=== PATIENT | female | born 1985 | race Asian ===

== ENCOUNTER 2017-06-28 20:04 | Emergency (ER) | payer OTHER ==
[2017-06-28] MEDS ORDERED: Lidocaine 1% PF 5 ML VIAL ONE (22:16)
== END 2017-06-28 22:52 | disposition home or self-care (01) ==
LOC: ERS 20:04
DX: S16.1XXA Strain of muscle, fascia and tendon at neck level, initial encounter (principal); E66.9 Obesity, unspecified; F17.210 Nicotine dependence, cigarettes, uncomplicated; X58.XXXA Exposure to other specified factors, initial encounter
CPT/HCPCS: 20552; J2001

== ENCOUNTER 2019-02-19 19:34 | Emergency (ER) | payer OTHER, MEDICAID | END 2019-02-19 21:02 | disposition home or self-care (01) | LOC: ERS 19:34 | DX: O99.89 Other specified diseases and conditions complicating pregnancy, childbirth and the puerperium (principal); H93.12 Tinnitus, left ear; H92.02 Otalgia, left ear; O99.332 Smoking (tobacco) complicating pregnancy, second trimester; F17.210 Nicotine dependence, cigarettes, uncomplicated; R73.03 Prediabetes; Z79.899 Other long term (current) drug therapy; Z79.84 Long term (current) use of oral hypoglycemic drugs; Z3A.22 22 weeks gestation of pregnancy ==

== ENCOUNTER 2019-03-25 17:11 | Day surgery (SDC) | payer MEDICAID, OTHER ==
[2019-03-25] MEDS ORDERED: hydrALAZINE 20 MG/ML VIAL SLOW IVP PRN (17:57)
[2019-03-25 17:58] VITALS: BMI 33.8
[2019-03-25 18:11] VITALS: BP 138/83; TEMP 98.5
--- NOTE | 2019-03-25 19:09 | CON ---
DATE OF CONSULTATION: 03/25/2019 TIME OF SERVICE: 1830 hours. PRESENTING COMPLAINT: Decreased movement at 27 weeks gestation with IUGR. HISTORY OF PRESENT ILLNESS: Ms. Wiley is a 34-year-old, G1, P0, sees Deena. The patient has known IUGR. Ultrasound yesterday revealed normal fluid. Normal MCA Doppler. Normal umbilical artery Dopplers with an 8/8 biophysical profile. She presents today complaining of decreased movement this afternoon. Denies rupture of membranes. 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 Blood type O-negative, normal 50 g. MEDICAL HISTORY: Hypothyroidism. SURGICAL HISTORY: Appendectomy. MEDICATIONS: Synthroid. ALLERGIES: DENIES. SOCIAL HISTORY: Denies tobacco, alcohol, or IV drug use. FAMILY HISTORY: Noncontributory. REVIEW OF SYSTEMS: Noncontributory. PHYSICAL EXAMINATION: GENERAL: female resting comfortably. VITAL SIGNS: Temperature 98.5, respirations 18, blood pressure 118/72, and pulse 85. HEENT: Within normal limits auscultation bilaterally. HEART: Regular rhythm. ABDOMEN: Soft and nontender. Fundal height 25 cm. FHTs 140s. PELVIC: Deferred. EXTREMITIES: No clubbing, cyanosis, or edema. Nonstress test was carried out for greater than 30 minutes. movements x5 were noted with a reactive heart rate tracing. No decelerations. Category 1 non-stress test. Baseline 140s to 150s with positive accelerations, no decelerations. IMPRESSION: Intrauterine growth restriction with decreased movement, now resolved. No evidence of distress at 27 weeks gestation. PLAN: Discharge home. Keep scheduled followup with Dr. Shaffer. ER precautions. Job ID: [id number]
--- NOTE | 2019-03-25 20:44 | ER ---
DATE OF SERVICE: 03/25/2019 TIME OF SERVICE: 1830. PRESENTING COMPLAINT: Decreased movement at 27 weeks' gestation. HISTORY OF PRESENT ILLNESS: Ms. Wiley is a 34-year-old primigravida with JYOTI of 06/21, placing her at 27 weeks and [address] Shaffer. She has a history of growth restriction, followed by [facility] for IUGR. MCA Dopplers have been within normal limits. She presents today complaining of decreased movement for this afternoon. She denies rupture of membranes. She denies bleeding. PEARL PELLER history is noted. Last ultrasound was the first percentile with normal FRACISCO, umbilical artery, and MCA Dopplers. She is continuing weekly testing with [facility]. She had an ultrasound performed by them on 03/23, which revealed normal FRACISCO, BPP of 8/8, with normal umbilically artery and middle cerebral artery. She presents today complaining of decreased movement, however, upon presentation had 5 movements in the first 30 minutes. 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 Pap negative. Rubella immune. VDRL nonreactive. Hepatitis B, GC, chlamydia negative. 50 g, normal. MEDICAL HISTORY: Hypothyroidism. SURGICAL HISTORY: Appendectomy. ALLERGIES: NONE. MEDICATIONS: Synthroid 75 mcg per day and metformin 500. FAMILY HISTORY: Noncontributory. REVIEW OF SYSTEMS: Noncontributory. PHYSICAL EXAMINATION: GENERAL: [place] female, in no acute distress. VITAL SIGNS: Temperature 98.5, respirations 18, blood pressure 118/72, pulse 85. HEENT: Within normal limits. LUNGS: Clear to auscultation bilaterally. HEART: Regular rhythm. ABDOMEN: Soft and nontender. Fundal height of 25 cm. FHTs 140s. PELVIC: Deferred. EXTREMITIES: Without clubbing, cyanosis, or edema. Nonstress test was carried out for the history of IUGR and decreased movement. As noted in the HPI, the infant had 5 movements in the first 30 minutes with a category 1 heart rate tracing with no decelerations, positive accelerations, no contractions noted, and baseline of 140s to 150s. IMPRESSION: Intrauterine growth restriction with normal antepartum testing 2 days ago and a reactive nonstress test now with normal movement. PLAN: ER precautions. Discharge home. The patient to keep scheduled followup with Deena. Job ID: [id number]
== END 2019-03-25 18:43 | disposition home health service (06) ==
LOC: L&D/OP 17:11
PROVIDERS: ATTEND Student in an Organized Health Care Education/Training Program
DX: O36.8120 Decreased fetal movements, second trimester, not applicable or unspecified (principal); O36.5920 Maternal care for other known or suspected poor fetal growth, second trimester, not applicable or unspecified; O99.282 Endocrine, nutritional and metabolic diseases complicating pregnancy, second trimester; E03.9 Hypothyroidism, unspecified; Z3A.27 27 weeks gestation of pregnancy; Z79.84 Long term (current) use of oral hypoglycemic drugs; Z79.899 Other long term (current) drug therapy
CPT/HCPCS: 59025; 99282

== ENCOUNTER 2019-05-05 15:37 | Inpatient (IN) | payer OTHER ==
[2019-05-05] MEDS ORDERED: Promethazine HCl 25 MG/ML VIAL IM PRN (16:12)
[2019-05-05] MEDS ORDERED: Ondansetron PF 4 MG/2 ML Vial IVP PRN (16:12)
[2019-05-05] MEDS ORDERED: Acetaminophen 500 MG TAB PO PRN (16:12)
[2019-05-05] MEDS ORDERED: hydrALAZINE 20 MG/ML VIAL SLOW IVP PRN (16:12)
--- NOTE | 2019-05-05 16:24 | PDOC.LDHP ---
Labor and Delivery H&P Chief complaint: other HPI: 34 y/o G1 at 32w1d, patient of Dr. Shaffer, presents with leaking fluid this morning at 3 and 5 am. She described it as a lot, and could "wring her underwear out." Denies VB, ctx, or other concerns. +FM. Had amnisure, VP3, GC /CT done in clinic. Was seen for ultrasound yesterday with normal FRACISCO (11) and repeat FRACISCO today is 4. ROS neg for HEENT, cv, pulm, gi, gu, neuro, psych, skin, musculoskeletal or constitutional symptoms other than mentioned above. OB History Details: First Current complications: IUGR Past Medical History: Hypothyroidism Current medications: pre-minesh vitamins, other (Synthroid, Metformin) Previous surgical history: appendectomy Allergies/Adverse Reactions: Allergies Allergy/AdvReac Type Severity Reaction Status Date / Time No Known Allergies Allergy Verified 05/05/19 16:58 Social history: none - Physical Exam Vital signs reviewed and normal: yes General: NAD, resting Lungs: nonlabored breathing Abdomen: gravid Extremeties: no edema FHT: category 1 (150s, mod variability, + accels, no decels) [place] contractions every: None - OB Labs Blood type: O RH: negative 1 hour GCT: negative - Assessment 34 y/o G1 at 32w1d with presumed PPROM. Patient with negative amnisure in clinic but could be false negative due to scant fluid leaking now. Fetus already being followed for IUGR by MFM. - Plan Plan: admit to L&D, informed consent obtained -: -VP3, GC/CT pending -Will treat as presumed rupture for now and repeat amnisure tomorrow morning. -IV hydration -Celestone for lung maturity -Ampicillin and Azithromycin for latency -Dr. Shaffer to assume care tomorrow.
[2019-05-05 16:58] VITALS: BP 143/83; TEMP 97.9; BMI 35.3
[2019-05-05] MEDS ORDERED: Betamet Acet/Betamet Na Ph 30 MG/5 ML VIAL ONE (17:36)
[2019-05-05] MEDS: Betamet Acet/Betamet Na Ph 30 MG/5 ML VIAL IM SCH (17:45)
[2019-05-05] MEDS: Lactated Ringer's 1,000 ML IV SCH ×2 (17:49→21:14)
[2019-05-05] MEDS ORDERED: Azithromycin 250 MG TAB PO SCH (18:15)
[2019-05-05] MEDS: Ampicillin 2 GM in Sodium Chloride 0.9% 100 ML IVPB SCH (18:18)
[2019-05-05] MEDS: metFORMIN 500 MG TAB PO SCH (21:13)
[2019-05-06] MEDS: Ampicillin 2 GM in Sodium Chloride 0.9% 100 ML IVPB SCH ×4 (00:10→18:13)
[2019-05-06] MEDS: Levothyroxine Sodium 75 MCG TAB PO SCH (06:06)
[2019-05-06] MEDS: Lactated Ringer's 1,000 ML IV SCH ×2 (06:06→18:14)
[2019-05-06 09:11] LABS: Hemoglobin 9.9 g/dL (12.0-16.0); Mean Corpuscular HGB CONC 32.9 g/dL (32.0-36.0); Mean Corpuscular Hemoglobin 26.4 pg (27.0-31.0); Mean Corpuscular Volume 80.3 fL (78.0-98.0); Mean Platelet Volume 9.4 fL (7.4-10.4); Platelet Count 291 thou/uL (130-400); RBC Distribution Width 14.6 % (11.5-14.5); Red Blood Cell (RBC) Count 3.75 mill/uL (4.20-5.40); White Blood Cell (WBC) Count 19.5 thou/uL (4.8-10.8)
[2019-05-06 09:16] LABS: ALT (SGPT) 10 U/L (8-55); AST (SGOT) 15 U/L (5-34); Albumin 3.1 g/dL (3.5-5.0); Alkaline Phosphatase 138 U/L (40-110); Anion Gap 14 mmol/L (10-20); BUN (Urea Nitrogen) 8 mg/dL (7.0-18.7); Bilirubin, Total 0.2 mg/dL (0.2-1.2); Calc. Creatinine Clearance 192 mL/min (70-130); Calcium 9.6 mg/dL (7.8-10.44); Carbon Dioxide 19 mmol/L (22-29); Chloride 110 mmol/L (98-107); Estimated GFR-MDRD Greater than 90; Globulin 3.6 g/dL (2.4-3.5); Glucose 98 mg/dL (70-105); Potassium 4.1 mmol/L (3.5-5.1); Protein, Total 6.7 g/dL (6.0-8.3); Sodium 139 mmol/L (136-145)
[2019-05-06 09:51] LABS: Band 6 % (5-11); Eosinophils 1 % (0-10); Lymphocytes 18 % (21-51); MDiff Complete? YES; Metamyelocyte 1 % (0-0); Monocytes 6 % (0-10); Neutrophil 68 % (42-75); Platelet Morphology Comment Appears Adequate; Polychromasia SLIGHT = 2-3 cells (100X) (0-2/hpf)
--- NOTE | 2019-05-06 10:28 | ULT ---
ULTRASOUND BIOPHYSICAL PROFILE: HISTORY: Premature rupture of membranes. IUGR. Oligohydramnios. FINDINGS: A single live intrauterine gestation is seen with a heart rate of 115 beats per minute. p osition is vertex. Placenta is anteriorly located. FRACISCO measures 8.7 cm. BIOPHYSICAL PROFILE: tone: 0 breathin movement: 2 Amniotic fluid: 2 IMPRESSION: Ultrasound biophysical profile score is 4/8. Report was given to the patient's nurse by the machine operator picker at the completion of the exam. CODE CR POS: JONATHON
[2019-05-06] MEDS ORDERED: Docusate 100 MG CAP PO PRN (10:34)
[2019-05-06 10:36] LABS: Amnisure Test No Membranes Rupture (No Rupture)
[2019-05-06 10:37] LABS: Amnisure Internal Control QC ACCEPTABLE (ACCEPTABLE)
[2019-05-06] MEDS ORDERED: Ferrous Sulfate 325 MG TAB PO SCH (10:45)
--- NOTE | 2019-05-06 10:53 | PDOC.LDPN ---
Labor & Delivery Progress Note - Subjective Subjective: comfortable (had slight LOF last night, none this am. Pt had liquid in underwear 2 nights ago but no gush of fluid. Has same discharge as shes always had) - Objective Vital signs reviewed and normal: yes Abnormal vital signs: mild range bp upon admission to l&d General: NAD Uterine fundus: non tender FHT: category 1 [place] contractions every: none -: 34yo at 32w3d by LMP with IUGR, questionable PPROM and elevated BP 1. questionable PPROM Day 2- SSE inconclusive, amnisure negative yesterday and FRACISCO 4cm. Plan repeat BPP and amnisure this am. On latency abx day 07/09. Check CBC 2. IUGR- EFW 4%ile 1 week ago, nl dopplers, NST reassuring 3. Elevated BP- PIH labs to be sent 4. Prematurity- BMZ 06/03, GBS collected 5. IUP- PNL to be sent off. 6. Cont L&D care.
[2019-05-06] MEDS: Ferrous Sulfate 325 MG TAB PO SCH ×2 (13:20→17:32)
[2019-05-06] MEDS: Betamet Acet/Betamet Na Ph 30 MG/5 ML VIAL IM SCH (17:39)
[2019-05-06] MEDS: metFORMIN 500 MG TAB PO SCH (21:25)
[2019-05-07] MEDS: Ampicillin 2 GM in Sodium Chloride 0.9% 100 ML IVPB SCH ×2 (00:21→06:21)
[2019-05-07] MEDS: Levothyroxine Sodium 75 MCG TAB PO SCH (06:21)
[2019-05-07] MEDS: Lactated Ringer's 1,000 ML IV SCH (07:17)
[2019-05-07] MEDS: Ferrous Sulfate 325 MG TAB PO SCH (08:10)
[2019-05-07] MEDS ORDERED: Prenatal Vitamin 1 TAB PO SCH (09:00)
--- NOTE | 2019-05-07 10:32 | ULT ---
US Biophysical Profile: 05/07/2019 8:31 AM CLINICAL HISTORY: Low Biophysical profile yesterday. COMPARISON: 05/06/2019 FINDINGS: heart rate: 141 bpm. FRACISCO: 6.5 cm Biophysical profile: 8 of 8 IMPRESSION: Normal biophysical profile
--- NOTE | 2019-05-07 12:57 | PDOC.LDPN ---
Labor & Delivery Progress Note - Subjective Subjective: comfortable - Objective Vital signs reviewed and normal: yes General: NAD Uterine fundus: non tender Dilation: cl Effacement: 50% Station: -1 FHT: category 1 [place] contractions every: rare Other exam findings: SSE physiologic white discharge, no pooling valsalva amnisure Plan: other (BPP 4/8 yesterday, NST Cat 1 yesterday and today, repeat BPP 8 today, FRACISCO 6.5, no further LOF, negative SSE. Repeat amnisure if negative will DC home. Has FU sono next Tues with MFM for IUGR)
[2019-05-07 13:14] LABS: Amnisure Test No Membranes Rupture (No Rupture)
[2019-05-07 13:15] LABS: Amnisure Internal Control QC ACCEPTABLE (ACCEPTABLE)
[2019-05-07 13:45] LABS: Hemoglobin 9.1 g/dL (12.0-16.0); Mean Corpuscular HGB CONC 33.1 g/dL (32.0-36.0); Mean Corpuscular Hemoglobin 26.6 pg (27.0-31.0); Mean Corpuscular Volume 80.4 fL (78.0-98.0); Mean Platelet Volume 9.3 fL (7.4-10.4); Platelet Count 293 thou/uL (130-400); RBC Distribution Width 14.8 % (11.5-14.5); Red Blood Cell (RBC) Count 3.42 mill/uL (4.20-5.40)
[2019-05-07 14:04] LABS: Anisocytosis SLIGHT = 6-15 cells (100X) (0-5/hpf); Band 13 % (5-11); Hypochromia SLIGHT = 6-15 cells (100X) (0-5/hpf); Lymphocytes 13 % (21-51); MDiff Complete? YES; Metamyelocyte 2 % (0-0); Monocytes 4 % (0-10); Myelocyte 1 % (0-0); Neutrophil 65 % (42-75); Platelet Morphology Comment Appears Adequate; Polychromasia MODERATE = 3-4 cells (100X) (0-2/hpf); Reactive Lymphocytes 2 % (0-10); Tear Drops SLIGHT = 2-5 cells (100X) (0-1/hpf)
== END 2019-05-07 15:40 | disposition home health service (06) | DRG 833 ==
LOC: L&D/OP 15:37 → L&D 15:58
PROVIDERS: ADMIT Student in an Organized Health Care Education/Training Program; ATTEND Student in an Organized Health Care Education/Training Program
DX: O42.013 Preterm premature rupture of membranes, onset of labor within 24 hours of rupture, third trimester (principal); O36.5930 Maternal care for other known or suspected poor fetal growth, third trimester, not applicable or unspecified; O99.284 Endocrine, nutritional and metabolic diseases complicating childbirth; E03.9 Hypothyroidism, unspecified; Z3A.32 32 weeks gestation of pregnancy
CPT/HCPCS: 36415; 76819; 80053; 84112; 85025; 86850; 86870; 86900; 86901; 87081; 87480; 87491; 87510; 87591; 87660; J0290; J0702; J3490

== ENCOUNTER 2019-05-11 13:06 | Inpatient (IN) | payer OTHER ==
[2019-05-11 13:39] VITALS: BMI 35.1
[2019-05-11] MEDS: Lactated Ringer's 1,000 ML IV SCH ×2 (14:18→21:27)
[2019-05-11] MEDS ORDERED: ePHEDrine/0.9% NaCl/PF SYRINGE 50 mg/10 ml ONE (15:13)
[2019-05-11] MEDS ORDERED: Bupivacaine 0.25% 10 ML VIAL ONE (15:13)
[2019-05-11] MEDS ORDERED: Misoprostol 200 MCG TAB PR PRN (15:57)
[2019-05-11] MEDS ORDERED: Lidocaine 1% (PF) 30 ML VIAL SC PRN (15:57)
[2019-05-11] MEDS ORDERED: Carboprost 250 MCG/ML AMP IM PRN (15:57)
[2019-05-11] MEDS ORDERED: Diphenoxylate HCl/Atropine Tablet PO PRN (15:57)
[2019-05-11] MEDS ORDERED: NS / Oxytocin 40 units/1000ml 1,000 ML IV PRN (15:57)
[2019-05-11] MEDS ORDERED: Acetaminophen 500 MG TAB PO PRN (15:57)
[2019-05-11] MEDS ORDERED: Ibuprofen 800 MG TAB PO PRN (15:57)
[2019-05-11] MEDS ORDERED: hydrALAZINE 20 MG/ML VIAL SLOW IVP PRN (15:57)
[2019-05-11] MEDS ORDERED: Ondansetron PF 4 MG/2 ML Vial IVP PRN (15:57)
[2019-05-11] MEDS ORDERED: Methylergonovine 0.2 MG/ML VIAL IM PRN (15:57)
[2019-05-11] MEDS ORDERED: Promethazine HCl 25 MG/ML VIAL IM PRN (15:57)
[2019-05-11] MEDS ORDERED: HYDROcodone/Acetaminophen 5/325 mg Tablet PO PRN ×2 (15:57)
[2019-05-11] MEDS ORDERED: NS w/ Oxytocin 10 units 500 ML IV SCH (16:00)
--- NOTE | 2019-05-11 16:03 | PDOC.LDHP ---
Labor and Delivery H&P Chief complaint: scheduled induction, other (IUGR, oligohydramnios at [facility] office today) HPI: 34yo at 34w1d by LMP here for IOL based on [facility] recommnedations due to IUGR , no growth in last 2 weeks and oligohydramnios FRACISCO 4cm. No complaints, no LOF. Current gestational age (weeks): 34 Due date: 06/21/19 Dating criteria: last menstrual period Grav: 1 Para: 0 Current complications: IUGR, oligohydramnios Abnormal US findings: Yes (IUGR Oligo) Past Medical History: hypothyroid, PCOS asthma Current medications: pre- vitamins, other (synthroid, metformin) Previous surgical history: none Allergies/Adverse Reactions: Allergies Allergy/AdvReac Type Severity Reaction Status Date / Time No Known Allergies Allergy Verified 05/11/19 13:40 Social history: none - Physical Exam Vital signs reviewed and normal: yes General: NAD Heart: RRR Lungs: CTAB Abdomen: gravid Extremeties: no edema FHT: category 1 [place] contractions every: rare - Vaginal Exam cm dilated: 0 Effacement: 50% Station: -2 - OB Labs Blood type: O RH: negative Antibody Screen: positive HIV: negative RPR: negative HEPSAg: negative 1 hour GCT: negative GBS: negative Urine drug screen: negative Rubella: immune - Assessment L&D Assessment: medically indicated induction - Plan Plan: admit to L&D, cervical ripening, labor augmentation if indicated, informed consent obtained, anesthesia consult for pain management
[2019-05-11] MEDS: Misoprostol 100 MCG TAB VAG SCH ×2 (16:33→20:20)
[2019-05-11 16:38] LABS: Hemoglobin 11.6 g/dL (12.0-16.0); Mean Corpuscular HGB CONC 32.5 g/dL (32.0-36.0); Mean Corpuscular Hemoglobin 26.3 pg (27.0-31.0); Mean Corpuscular Volume 80.9 fL (78.0-98.0); Mean Platelet Volume 9.8 fL (7.4-10.4); Platelet Count 367 thou/uL (130-400); RBC Distribution Width 15.2 % (11.5-14.5); Red Blood Cell (RBC) Count 4.41 mill/uL (4.20-5.40); White Blood Cell (WBC) Count 20.9 thou/uL (4.8-10.8)
[2019-05-11 17:21] LABS: Syphilis Antibody Nonreactive (Nonreactive); Syphilis Antibody Index 0.06 S/CO (<1.00 Non-Reactive)
[2019-05-11 17:23] LABS: HBSAg Index 0.19 S/CO (0-0.99); Hep B Surf Ag Non-Reactive S/CO (NonReactive)
[2019-05-11 17:42] LABS: ALT (SGPT) 12 U/L (8-55); AST (SGOT) 17 U/L (5-34); Albumin 3.6 g/dL (3.5-5.0); Alkaline Phosphatase 167 U/L (40-110); Anion Gap 18 mmol/L (10-20); BUN (Urea Nitrogen) 13 mg/dL (7.0-18.7); Bilirubin, Total 0.2 mg/dL (0.2-1.2); Calc. Creatinine Clearance 198 mL/min (70-130); Calcium 9.9 mg/dL (7.8-10.44); Carbon Dioxide 18 mmol/L (22-29); Chloride 105 mmol/L (98-107); Estimated GFR-MDRD Greater than 90; Globulin 3.4 g/dL (2.4-3.5); Glucose 61 mg/dL (70-105); Potassium 4.7 mmol/L (3.5-5.1); Sodium 136 mmol/L (136-145)
[2019-05-12] MEDS ORDERED: Terbutaline Sulfate 1 MG/ML VIAL ONE (00:51)
[2019-05-12] MEDS: Lactated Ringer's 1,000 ML IV SCH ×4 (01:07→22:37)
[2019-05-12] MEDS ORDERED: Carboprost 250 MCG/ML AMP IM PRN (04:42)
[2019-05-12] MEDS ORDERED: HYDROcodone/Acetaminophen 5/325 mg Tablet PO PRN ×2 (04:43)
[2019-05-12] MEDS ORDERED: Methylergonovine 0.2 MG/ML VIAL IM PRN (04:44)
[2019-05-12] MEDS ORDERED: Misoprostol 200 MCG TAB PR PRN (04:44)
[2019-05-12] MEDS ORDERED: Dinoprostone 10 MG Suppository VAG SCH (05:00)
[2019-05-12] MEDS: Misoprostol 100 MCG TAB VAG SCH ×2 (07:35→13:33)
--- NOTE | 2019-05-12 10:42 | PDOC.LDPN ---
Labor & Delivery Progress Note - Subjective Subjective: painful contractions - Objective Vital signs reviewed and normal: yes General: NAD Uterine fundus: non tender Dilation: 1 Effacement: 75% Station: -1 FHT: category 2, late decelerations (occasional) [place] contractions every: 10min -: 34w2d for IOL due to IUGR and oligohydramnios s/p BMZ last week GBS neg s/p cytotec x 2, decels overnight, resolved with resuscitation including terb. Cervidil in place since 5am. FHT Cat 2, overall good variability and accels, occasional lates. Cont cervidil , if NRFHT develop will be for primary CS. Pt understands.
[2019-05-12] MEDS: Butorphanol Tartrate 1 MG/ML VIAL SLOW IVP PRN ×5 (11:27→21:00)
--- NOTE | 2019-05-12 16:54 | PDOC.EVN ---
Event Note - Event Note Event Note: Dr Shaffer has asked me to take over care of Ms Wiley. If pt is undelivered by tomorrow morning she will resume care. Pt was admitted at 34wks for iugr and at the recommendation of MFM. She has had a cervidil placed due to come out soon. will assess her labor course at that time. Fetus currently with baseline in the 130s mod ltv +accels, no decels
[2019-05-12] MEDS ORDERED: Fentanyl 4 mcg/Bup 0.1% Cadd 100 ML ONE (21:57)
[2019-05-12] MEDS ORDERED: diphenhydrAMINE 50 MG/ML VIAL IVP PRN (22:50)
[2019-05-12] MEDS ORDERED: Promethazine HCl 25 MG/ML VIAL IM PRN (22:50)
[2019-05-12] MEDS ORDERED: Lactated Ringer's 500 ML IV PRN (22:50)
[2019-05-12] MEDS ORDERED: ePHEDrine/0.9% NaCl/PF SYRINGE 50 mg/10 ml SLOW IVP PRN (22:50)
[2019-05-12] MEDS ORDERED: Naloxone HCl 0.4 mg/ml Vial IVP PRN ×2 (22:50)
[2019-05-12] MEDS ORDERED: Ondansetron PF 4 MG/2 ML Vial IVP PRN (22:50)
[2019-05-12] MEDS ORDERED: Acetaminophen 325 MG TAB PO PRN (22:50)
[2019-05-12] MEDS ORDERED: Fentanyl 4 mcg/Bupivacaine 0.1% Cassette 100 ML EPIDURAL SCH (23:00)
[2019-05-12] MEDS ORDERED: Communication Order-Pharmacy FS SCH (23:00)
[2019-05-13] MEDS ORDERED: Fentanyl 4 mcg/Bup 0.1% Cadd 100 ML ONE (05:36)
[2019-05-13] MEDS: Lactated Ringer's 1,000 ML IV SCH (05:40)
[2019-05-13] MEDS ORDERED: Bicitra 30 ML UDCUP ONE (08:10)
--- NOTE | 2019-05-13 08:24 | PDOC.LDPN ---
Labor & Delivery Progress Note - Subjective Subjective: comfortable - Objective Vital signs reviewed and normal: yes General: NAD Uterine fundus: non tender Dilation: 6 Effacement: 90% Station: 0 FHT: category 2, late decelerations [place] contractions every: 4min Plan: other (Pt declines AROM due to risk of NRFHT. Fetus has had intermittent NRFHT, cannot tolerate pitocin. Proceed to PCS for NRFHT. )
[2019-05-13] MEDS ORDERED: Bicitra 30 ML UDCUP PO SCH (08:30)
[2019-05-13] MEDS ORDERED: CEFAZOLIN 2 GM in Premix Bag 1 BAG IVPB SCH (08:30)
[2019-05-13] MEDS ORDERED: Azithromycin 500 MG in Sodium Chloride 0.9% 250 ML 250 ML IVPB SCH (08:30)
[2019-05-13] MEDS ORDERED: Oxytocin 10 UNITS/ML VIAL ONE ×2 (09:18→09:19)
[2019-05-13] MEDS ORDERED: ePHEDrine/0.9% NaCl/PF SYRINGE 50 mg/10 ml ONE (09:19)
[2019-05-13] MEDS ORDERED: MORPHINE 5 MG/10 ML PF VIAL ONE (09:19)
[2019-05-13] MEDS ORDERED: PHENYLEPHRINE-NS 100 MCG/ML 10 ML SYRINGE ONE (09:20)
[2019-05-13] MEDS ORDERED: Lidocaine 2% MPF 10 ML AMP (For Epidural Use) ONE (09:23)
--- NOTE | 2019-05-13 09:28 | PDOC.OPDEL ---
OB Operative/Delivery Note Delivery Dr/Surgeon: Deena Assist: Toribio Pre-Delivery Diagnosis: non-reassuring tracing Procedure/Post Delivery Dx: primary low transverse CS Weeks gestation: 34 Anesthesia: epidural - Findings A Sex: female - Additional Findings/Plan Placenta delivered: spontaneous findings: low transverse hysterotomy without extension, normal uterus, normal tubes, normal ovaries Post delivery plan: routine recovery
[2019-05-13] MEDS ORDERED: Ondansetron PF 4 MG/2 ML Vial ONE (09:30)
[2019-05-13] MEDS ORDERED: Succinylcholine Chloride 20 MG/ML 10 ml SYRINGE FS ONE (09:38)
[2019-05-13] MEDS ORDERED: PROPOFOL 20 ML ONE (09:38)
[2019-05-13] MEDS ORDERED: Midazolam HCl 2 mg/2 ml Vial ONE (09:52)
[2019-05-13] MEDS ORDERED: Fentanyl 100 MCG/2 ML VIAL ONE ×2 (09:53→10:28)
[2019-05-13] MEDS ORDERED: diphenhydrAMINE 50 MG/ML VIAL IM PRN (10:40)
[2019-05-13] MEDS ORDERED: Ondansetron HCl/PF 4 MG/2 ML Vial IVP PRN (10:40)
[2019-05-13] MEDS ORDERED: Zolpidem Tartrate 5 MG TAB PO PRN ×2 (10:40→12:46)
[2019-05-13] MEDS ORDERED: diphenhydrAMINE 50 MG/ML VIAL IVP PRN ×2 (10:40)
[2019-05-13] MEDS ORDERED: Meperidine HCl/PF 25 MG/ML VIAL SLOW IVP PRN (10:40)
[2019-05-13] MEDS ORDERED: Naloxone HCl 0.4 mg/ml Vial IV PRN ×2 (10:40)
[2019-05-13] MEDS ORDERED: Promethazine HCl 25 MG/ML VIAL IM PRN ×2 (10:40)
[2019-05-13] MEDS ORDERED: Naloxone HCl 0.4 mg/ml Vial IVP PRN ×2 (10:40)
[2019-05-13] MEDS ORDERED: diphenhydrAMINE 25 MG CAP PO PRN ×2 (10:40→12:46)
[2019-05-13] MEDS ORDERED: HYDROmorphone 2 MG/ML VIAL SLOW IVP PRN (10:40)
[2019-05-13] MEDS ORDERED: Promethazine HCl 25 MG SUPP PR PRN (10:40)
[2019-05-13] MEDS ORDERED: HYDROmorphone 10 mg/100 ml CADD IVPB PRN (10:40)
[2019-05-13] MEDS ORDERED: L&D-Morphine 4 MG/ML VIAL SLOW IVP PRN (10:40)
[2019-05-13] MEDS ORDERED: Ondansetron PF 4 MG/2 ML Vial IVP PRN ×3 (10:40→12:46)
[2019-05-13] MEDS ORDERED: Communication Order-Pharmacy FS SCH (10:45)
[2019-05-13] MEDS ORDERED: Communication Order-Pharmacy FS PRN (10:45)
[2019-05-13] MEDS ORDERED: Meperidine HCl/PF 25 MG/ML VIAL ONE (10:55)
[2019-05-13] MEDS ORDERED: Ketorolac Tromethamine 30 MG/ML VIAL ONE (11:44)
[2019-05-13] MEDS: Ketorolac Tromethamine 30 MG/ML VIAL IVP PRN ×2 (11:46→19:48)
[2019-05-13] MEDS: Ketorolac Tromethamine 30 MG/ML VIAL IVP SCH (11:49)
[2019-05-13] MEDS ORDERED: hydrALAZINE 20 MG/ML VIAL SLOW IVP PRN (12:46)
[2019-05-13] MEDS ORDERED: Adacel (T-DAP) 0.5 ML SYRINGE IM ONE (12:46)
[2019-05-13] MEDS ORDERED: Bisacodyl 10 MG SUPP PR PRN (12:46)
[2019-05-13] MEDS ORDERED: Lanolin Ointment 7 GM TUBE TOP PRN (12:46)
[2019-05-13] MEDS ORDERED: PROPOFOL 200 MG/20 ML VIAL ONE (12:54)
--- NOTE | 2019-05-13 16:40 | OP ---
DATE OF PROCEDURE: 05/13/2019 PREOPERATIVE DIAGNOSES: 1. Intrauterine at 34 weeks and 3 days. 2. Intrauterine growth restriction. 3. Oligohydramnios. 4. Non-reassuring heart tones, remote from delivery. POSTOPERATIVE DIAGNOSES: 1. Intrauterine at 34 weeks and 3 days. 2. Intrauterine growth restriction. 3. Oligohydramnios. 4. Non-reassuring heart tones, remote from delivery. PROCEDURE PERFORMED: Primary low transverse section via Pfannenstiel skin incision. ANESTHESIA: Epidural. ESTIMATED BLOOD LOSS: 700 mL. COMPLICATIONS: None. DRAINS: Muñoz catheter. PATHOLOGY: Placenta. APPELLATE COURT CLERK SURGEON: Dr. Roberts, PGY-3. FINDINGS: Female infant, cephalic presentation, OP and deflexed, clear amniotic fluid, small calcified placenta, 3-vessel cord. Apgars and weight are pending. Normal uterus, ovaries, and tubes bilaterally. OPERATIVE TECHNIQUE: The patient was taken to the operating room, where epidural anesthesia was found to be adequate. The patient was prepped and draped in a sterile fashion in a dorsal supine position with a leftward tilt. After ensuring adequacy of anesthesia, a Pfannenstiel skin incision was made and carried down to the underlying subcutaneous tissue with the Bovie cauterizing vessels with the use of the hemostats. The fascia was nicked in the midline with the Bovie and carried laterally with the Martinez scissors. Rectus perforators were cauterized. The superior aspect of the fascia was tented with 2 Kochers and dissected off the rectus with Bovie cautery. The inferior aspect of the fascia was tented with two Kochers and dissected off the rectus with the Bovie as well. The rectus was bluntly divided in the midline. The peritoneum was bluntly entered into and manually retracted. The Jori O retractor was placed. The lower uterine segment was incised in a transverse fashion extended with a Swanson maneuver. The 's head was brought to the hysterotomy and delivered with fundal pressure. Infant was not vigorous. Therefore, cord was clamped and handed to awaiting Brannon team. Cord gas and cord blood were obtained. The placenta was allowed to spontaneously deliver. The uterus was lapped out and there was an extension on the right aspect of the hysterotomy into the uterine vessels that was oozing. This was hemostatic with an [place] stitch of #1 Monocryl. The hysterotomy was then repaired with a #1 Monocryl in a running locking fashion with excellent hemostasis. The pelvis was irrigated and suctioned and again hemostasis was noted. The Jori O retractor was removed and the peritoneum was grasped with 3 Kellys and the peritoneum was closed with #1 Monocryl in a running fashion in order to hold the small bowel in the abdominal cavity. The fascia was reapproximated with a 0 PDS x2 sutures with excellent reapproximation. The subcutaneous tissue was irrigated and cauterized of any bleeders and reapproximated with 2-0 plain gut in a running fashion. The skin was closed with 4-0 Monocryl in a subcuticular fashion. Dermabond was applied as well as a pressure dressing. The patient tolerated the procedure well. Sponge and needle counts correct x2. The patient was taken to recovery room in stable condition. The patient received Ancef 2 g and azithromycin 500 mg prior to the procedure. Job ID: [id number]
[2019-05-13] MEDS: Acetaminophen 325 MG TAB PO PRN (19:45)
[2019-05-13] MEDS: Docusate Calcium (SURFAK) 240 MG CAP PO SCH (19:46)
[2019-05-13] MEDS: Simethicone Chewable 80 MG TAB PO PRN (19:46)
[2019-05-13] MEDS: Ferrous Sulfate 325 MG TAB PO SCH (22:15)
[2019-05-14] MEDS: Ketorolac Tromethamine 30 MG/ML VIAL IVP PRN (03:49)
[2019-05-14 06:10] LABS: Hemoglobin 9.2 g/dL (12.0-16.0); Mean Corpuscular HGB CONC 33.3 g/dL (32.0-36.0); Mean Corpuscular Hemoglobin 27.1 pg (27.0-31.0); Mean Corpuscular Volume 81.5 fL (78.0-98.0); Mean Platelet Volume 8.3 fL (7.4-10.4); Platelet Count 255 thou/uL (130-400); RBC Distribution Width 15.7 % (11.5-14.5); White Blood Cell (WBC) Count 15.8 thou/uL (4.8-10.8)
[2019-05-14] MEDS: Ferrous Sulfate 325 MG TAB PO SCH ×2 (09:03→22:28)
[2019-05-14] MEDS: Docusate Calcium (SURFAK) 240 MG CAP PO SCH ×2 (09:03→22:29)
[2019-05-14] MEDS: Prenatal Vitamin 1 TAB PO SCH (09:03)
[2019-05-14] MEDS: Simethicone Chewable 80 MG TAB PO PRN ×3 (09:06→22:29)
[2019-05-14] MEDS: HYDROcodone/Acetaminophen 5/325 mg Tablet PO PRN ×3 (10:50→22:30)
[2019-05-14] MEDS: Ketorolac Tromethamine 30 MG/ML VIAL IVP SCH (11:01)
[2019-05-14] MEDS: Ibuprofen 800 MG TAB PO SCH ×2 (13:30→22:29)
--- NOTE | 2019-05-14 13:57 | PDOC.PP ---
Post Progress Note Post Day #: 1 PO intake tolerated: yes Flatus: yes Ambulation: yes Vital Signs (12 hours) Temp Pulse Resp BP Pulse Ox 05/14/19 11:25 98.9 F 113 H 20 122/76 05/14/19 07:58 98.5 F 96 20 107/62 95 05/14/19 04:45 99.5 F 107 H 18 118/70 Weight Weight 192 lb - Physical Examination General: NAD Cardiovascular: RRR (manual pulse 96) Respiratory: non-labored breathing Abdominal: + bowel sounds, no distention, appropriately TTP Fundus firm & at: umb-2 Extremities: negative homans (B) Skin: CS incision dry & intact Neurological: no gross focal deficits Result Diagrams: 05/14/19 05:47 05/11/19 16:29 Additional Labs: Post Labs Blood Type O NEGATIVE 05/11/19 16:29 Hep Bs Antigen Non-Reactive S/CO (NonReactive) 05/11/19 16:29 - Assessment/Plan POD1 s/p PCS for NRFHT at 34w 2/2 IUGR, oligo Tmax 100.6 last night with assoc tachycardia, resolved with tylenol, asymptomatic, no fundal tenderness or breast engorgement, will monitor closely vital signs. If respikes will get cultures and start abx. 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 Cont postop care.
[2019-05-14] MEDS: metFORMIN 500 MG TAB PO SCH (17:11)
[2019-05-15] MEDS: Levothyroxine Sodium 75 MCG TAB PO SCH (05:56)
[2019-05-15] MEDS: Ibuprofen 800 MG TAB PO SCH ×3 (05:56→21:10)
[2019-05-15] MEDS: HYDROcodone/Acetaminophen 5/325 mg Tablet PO PRN ×3 (05:58→17:05)
--- NOTE | 2019-05-15 07:58 | PRG ---
DATE OF SERVICE: 05/15/2019 SUBJECTIVE: The patient is postop day 2 status post primary for nonreassuring heart tones at 34 weeks, status post induction attempt due to oligohydramnios and IUGR. The patient reports today that she is having a lot of pain and that her pain medications have not been helping sufficient and did not realize that she could share that with her nurses. Otherwise, she has decreased bleeding. She is tolerating p.o. and voiding on her own. OBJECTIVE: VITAL SIGNS: Blood pressure 120/75, temperature 97.6, pulse of 96, respiratory rate of 16. GENERAL: She appears to be in no acute distress, though she does appear to be very uncomfortable. ASSESSMENT AND PLAN: The patient is a 34-year-old female, postop day 2 status post a primary for nonreassuring heart tones. Baby is in the NICU. The pain medications are going to be adjusted. Currently, she has 1 to 2 tablets of hydrocodone every 4 hours as needed for pain. In reviewing her MAR, it appears that she has been getting primarily one tab of hydrocodone and has only received it 4 times in the last 24 hours. We will work on getting her medication more regularly and see if that helps. Anticipate discharge on Friday. Job ID: [id number]
[2019-05-15] MEDS: Docusate Calcium (SURFAK) 240 MG CAP PO SCH ×2 (10:54→21:10)
[2019-05-15] MEDS: metFORMIN 500 MG TAB PO SCH ×2 (10:54→17:05)
[2019-05-15] MEDS: Prenatal Vitamin 1 TAB PO SCH (10:54)
[2019-05-15] MEDS: Ferrous Sulfate 325 MG TAB PO SCH ×2 (10:54→21:10)
[2019-05-15] MEDS: Ketorolac Tromethamine 30 MG/ML VIAL IVP SCH (11:12)
[2019-05-15 13:10] LABS: Hemoglobin 8.7 g/dL (12.0-16.0); Mean Corpuscular HGB CONC 32.8 g/dL (32.0-36.0); Mean Corpuscular Hemoglobin 27.2 pg (27.0-31.0); Mean Corpuscular Volume 83.2 fL (78.0-98.0); Platelet Count 286 thou/uL (130-400); RBC Distribution Width 15.3 % (11.5-14.5); Red Blood Cell (RBC) Count 3.19 mill/uL (4.20-5.40)
[2019-05-15 13:29] LABS: Anisocytosis SLIGHT = 6-15 cells (100X) (0-5/hpf); Band 18 % (5-11); Lymphocytes 11 % (21-51); MDiff Complete? YES; Metamyelocyte 1 % (0-0); Neutrophil 70 % (42-75); Platelet Morphology Comment Appears Adequate; Polychromasia SLIGHT = 2-3 cells (100X) (0-2/hpf)
[2019-05-15] MEDS: Simethicone Chewable 80 MG TAB PO PRN ×2 (15:31→21:11)
[2019-05-16] MEDS: Ibuprofen 800 MG TAB PO SCH ×3 (05:55→21:17)
[2019-05-16] MEDS: Levothyroxine Sodium 75 MCG TAB PO SCH (05:55)
[2019-05-16] MEDS: HYDROcodone/Acetaminophen 5/325 mg Tablet PO PRN ×2 (05:56→13:32)
--- NOTE | 2019-05-16 07:33 | PDOC.PP ---
Post Progress Note Post Day #: 3 Subjective: Patient doing well. No significant overnight events. Patient tolerating PO. Patient endorses some lower extremity swelling. She also states that she had dizziness yesterday morning, but that has since resolved. Patient states pain well controlled with current pain medications. PO intake tolerated: yes Flatus: yes Ambulation: yes Vital Signs (12 hours) Temp Pulse Resp BP Pulse Ox 05/15/19 23:35 98.3 F 90 16 134/66 97 Weight Weight 87.09 kg - Physical Examination General: NAD Cardiovascular: RRR Respiratory: non-labored breathing Abdominal: lochia (minimal), no distention, appropriately TTP Fundus firm & at: below umbilicus Extremities: negative homans (B) Skin: CS incision dry & intact, no rash Neurological: no gross focal deficits Psychiatric: A&Ox3, normal affect Result Diagrams: 05/15/19 12:52 05/11/19 16:29 Additional Labs: Post Labs Blood Type O NEGATIVE 05/11/19 16:29 Hep Bs Antigen Non-Reactive S/CO (NonReactive) 05/11/19 16:29 (1) delivery Code(s): O60.10X0 - LABOR W DELIVERY, UNSP TRIMESTER, UNSP Status: Acute (2) S/P primary low transverse Code(s): Z98.891 - HISTORY OF UTERINE SCAR FROM PREVIOUS SURGERY Status: Acute - Assessment/Plan Routine PP care - POD #3 - Meeting milestones - Patient with no temp since 2 nights ago - Infant in NICU, doing well, pt - One elevated BP in 140's yesterday morning, all within normal range since that time - Encourage ambulation - Rh neg s/p rhogam Dispo: Plan for d/c home tomorrow. Patient's infant still in NICU. Addendum - Attending - Attending Attestation Date/Time: 05/16/19 [id number] I personally evaluated the patient and discussed the management with Dr. Oates. I agree with the Assessment and Plan documented above.
[2019-05-16] MEDS: Ferrous Sulfate 325 MG TAB PO SCH ×2 (08:20→21:16)
[2019-05-16] MEDS: Prenatal Vitamin 1 TAB PO SCH (08:20)
[2019-05-16] MEDS: metFORMIN 500 MG TAB PO SCH ×2 (08:20→17:50)
[2019-05-16] MEDS: Docusate Calcium (SURFAK) 240 MG CAP PO SCH ×2 (08:21→21:18)
[2019-05-16] MEDS: Acetaminophen 325 MG TAB PO PRN (08:25)
[2019-05-16] MEDS: Ketorolac Tromethamine 30 MG/ML VIAL IVP SCH (13:34)
[2019-05-16 21:51] VITALS: TEMP 98.6
[2019-05-17] MEDS: Ibuprofen 800 MG TAB PO SCH ×2 (05:26→14:33)
[2019-05-17] MEDS: Levothyroxine Sodium 75 MCG TAB PO SCH (05:26)
[2019-05-17] MEDS: HYDROcodone/Acetaminophen 5/325 mg Tablet PO PRN ×3 (05:27→14:36)
[2019-05-17 07:55] VITALS: BP 129/73
[2019-05-17] MEDS: Prenatal Vitamin 1 TAB PO SCH (09:21)
[2019-05-17] MEDS: Docusate Calcium (SURFAK) 240 MG CAP PO SCH (09:21)
[2019-05-17] MEDS: metFORMIN 500 MG TAB PO SCH (09:22)
[2019-05-17] MEDS: Ferrous Sulfate 325 MG TAB PO SCH (09:23)
--- NOTE | 2019-05-17 15:50 | PDOC.PP ---
Post Progress Note Post Day #: 4 PO intake tolerated: yes Flatus: yes Ambulation: yes Vital Signs (12 hours) Temp Pulse Resp BP Pulse Ox 05/17/19 07:55 98.6 F 78 20 129/73 97 Weight Weight 192 lb - Physical Examination General: NAD Respiratory: non-labored breathing Abdominal: no distention, appropriately TTP Skin: CS incision dry & intact Neurological: no gross focal deficits Psychiatric: normal affect Result Diagrams: 05/15/19 12:52 05/11/19 16:29 Additional Labs: Post Labs Blood Type O NEGATIVE 05/11/19 16:29 Hep Bs Antigen Non-Reactive S/CO (NonReactive) 05/11/19 16:29 - Assessment/Plan POD4 s/p PCS for NRFHT, IUGR, oligo at 34w VSSAF Doing well met all milestones Baby in NICU for B&B Rh neg s/p rhogam, RImm DC home FU 2 wk
== END 2019-05-17 16:30 | disposition home or self-care (01) | DRG 786 ==
LOC: L&D 13:06 → 3SW 05-13 13:01
PROVIDERS: ADMIT Student in an Organized Health Care Education/Training Program; ATTEND Student in an Organized Health Care Education/Training Program
PROC: 10D00Z1 Extraction of Products of Conception, Low, Open Approach (ICD-10-PCS; principal; 2019-05-13)
DX: O36.5930 Maternal care for other known or suspected poor fetal growth, third trimester, not applicable or unspecified (principal); O60.14X0 Preterm labor third trimester with preterm delivery third trimester, not applicable or unspecified; O41.03X0 Oligohydramnios, third trimester, not applicable or unspecified; O76 Abnormality in fetal heart rate and rhythm complicating labor and delivery; Z3A.34 34 weeks gestation of pregnancy; Z37.0 Single live birth
CPT/HCPCS: 36415; 51702; 80053; 85007; 85027; 85461; 86780; 86850; 86870; 86900; 86901; 87340; 88307; 90384; 96372; J0456; J0595; J0690; J1885; J2001; J2175; J2250; J2274; J2405; J2590; J2704; J3010; J3105; J7050; S0020

== ENCOUNTER 2020-06-03 16:41 | Emergency (ER) | payer OTHER ==
[2020-06-03 22:06] LABS: SARS-CoV-2 MS2 Positive; SARS-CoV-2 N Gene Positive; SARS-CoV-2 S Gene Positive; SARS-CoV-2 by NAA DETECTED (NotDetected); SARS-CoV-2 orf1ab Positive
== END 2020-06-03 17:42 | disposition home or self-care (01) ==
LOC: ERS 16:41
DX: U07.1 COVID-19 (principal); R73.03 Prediabetes; Z79.899 Other long term (current) drug therapy; Z79.84 Long term (current) use of oral hypoglycemic drugs
CPT/HCPCS: 87635; 99283; U0003